=== PATIENT | male | born 1975 | race Caucasian/White ===

== ENCOUNTER 2017-05-22 10:52 | Emergency (ER) | payer BC, SELFPAY ==
[2017-05-22 11:15] LABS: #Basophils 0.1 thou/uL (0.0-0.2); #Eosinphils 0.1 thou/uL (0.0-0.7); #Lymphocytes 2.6 thou/uL (1.20-3.40); #Monocytes 0.5 thou/uL (0.11-0.59); #Neutrophils 3.9 thou/uL (1.40-6.50); %Basophils 1.5 % (0.0-1.0); %Eosinophils 1.9 % (0.0-10.0); %Lymphocytes 36.4 % (21.0-51.0); %Monocytes 6.8 % (0.0-10.0); Hematocrit 52.3 % (42.0-52.0); Mean Platelet Volume 6.9 fL (7.4-10.4); Red Blood Cell (RBC) Count 5.64 mill/uL (4.70-6.10); White Blood Cell (WBC) Count 7.2 thou/uL (4.8-10.8)
--- NOTE | 2017-05-22 11:18 | CT ---
CT BRAIN NONCONTRAST: HISTORY: 41-year-old male with acute stroke symptoms, right upper extremity weakness and dysarthria. Dr. Aguila gave this stroke alert CT report by telephone to ER physician, Dr. Swati Romero, at 11:0 8 a.m. on 05-22-17. FINDINGS: The ventricles are normal in size and configuration. There is no midline shift or any other mass ef fect. There is no evidence of acute intracranial hemorrhage, large cortical infarct, or extraaxial fluid collection. The peterson matter /white matter differentiation is maintained. The calvarium is in tact. The tympanomastoid cavities, and the upper portions of the paranasal sinuses included in thes e images, are grossly clear. IMPRESSION: Normal. jn POS: OFF
[2017-05-22 11:25] LABS: PTT 21.7 SEC (22.9-36.1)
[2017-05-22 11:30] LABS: ALT (SGPT) 24 U/L (8-55); AST (SGOT) 8 U/L (5-34); Alkaline Phosphatase 90 U/L (40-150); Anion Gap 17 mmol/L (10-20); BUN (Urea Nitrogen) 14 mg/dL (8.9-20.6); Bilirubin, Total 3.4 mg/dL (0.2-1.2); Calc. Creatinine Clearance 0 mL/min (70-130); Calcium 10.3 mg/dL (7.8-10.44); Carbon Dioxide 21 mmol/L (22-29); Chloride 105 mmol/L (98-107); Estimated GFR-MDRD 70; Globulin 3.5 g/dL (2.4-3.5); Protein, Total 8.3 g/dL (6.0-8.3)
[2017-05-22 11:51] LABS: Troponin I Less than 0.010 ng/mL (< 0.028)
--- NOTE | 2017-05-22 12:26 | CT ---
CT ANGIOGRAM OF THE NECK CT ANGIOGRAM OF THE HEAD CT PERFUSION: History: Right arm weakness with slurred speech. Symptoms have started to improve. Comparison: None. Technique: CT angiogram of the head and neck are performed in the axial plane. Sagittal and coronal 3D images are submitted for interpretation. CT Perfusion: Perfusion images performed in the axial plane. FINDINGS: Post contrast images do not demonstrate any pathological enhancement of the brain parenchyma. Cortic al peterson-white matter differentiation appears to be preserved. Calvarium is intact. Adequate aeration of sinuses and mastoid air cells. Small polyp or mucous reten tion cyst in the right maxillary sinus. Bilateral ocular lenses are appropriately located. Both globes are intact. Retrobulbar fat is preser shar. Aorta and digestive tract is patent. No mucosal abnormality. Parotid glands, submandibular glands and thyroid gland are unremarkable. Symmetric attenuation of the sternocleidomastoid muscles. No evidence of lymphadenopathy by size cri teria. Upper mediastinum and lung apices are unremarkable. There are varying degree of central canal stenosis and foraminal narrowing on the basis of degenerat gabriela change. Evaluation is limited due to technique. CT ANGIOGRAM: The aortic arch has appropriate enhancement and luminal diameter. RIGHT CAROTID: The right carotid artery origin has appropriate enhancement and luminal diameter. The common carotid artery, carotid bifurcation, and internal carotid artery have appropriate enhancement and luminal d iameter. LEFT CAROTID: Left carotid artery origin has appropriate enhancement and luminal diameter. The common carotid nick ry, carotid bifurcation and internal carotid artery have appropriate enhancement and luminal diamete r. Both subclavian arteries are normal in caliber. Left and right vertebral arteries are patent through out their course in the neck. The left vertebral artery origins directly from the aortic arch. CT ANGIOGRAM HEAD: The distal cervical and intracranial internal carotid arteries have symmetric enhancement and lumina l diameter. ANTERIOR CIRCULATION: Slightly diminutive right A1 segment, likely a congenital variant. There is symmetric enhancement of the lumen diameter of the A2 segments. There is symmetric enhancement and lumen diameter of the M1 segments. Proximal MCA branches are essentially symmetric. POSTERIOR CIRCULATION: The left and right PICA artery origins are slightly difficult to appreciate. Both vertebral arteries supply a normal caliber basilar artery. The left and right P1 segments and luminal diameter. CT PERFUSION: There is no evidence of increased mean transit time. There is no evidence of decreased blood flow or blood volume. There is no evidence of a completed infarct or brain ischemia on the perfusion images . IMPRESSION: 1. Unremarkable CT angiogram of the head and neck. No evidence of significant stenosis. 2. Unremarkable perfusion study. 3. Results of study discussed with Dr. Romero 05-22-17 at 11:50 a.m. Edu MESSER. POS: [facility]
[2017-05-22 12:36] LABS: Bilirubin Negative (Negative); Blood, Urine Trace (Negative); Glucose, Urine (Dipstick) Negative (Negative); Ketone, Urine Negative (Negative); Nitrite Negative (Negative); Protein, Urine (Dipstick) Negative (Neg-Trace); Urobilinogen 0.2 mg/dL (0.2-1.0)
[2017-05-22 12:54] LABS: Bacteria/HPF None Seen HPF (None Seen); Hyaline Casts/LPF 0-3 HYALINE CAST LPF (0-3 Hyaline); RBC/HPF 0-3 HPF (0-3); Squamous Epithelial 0-3 HPF (0-3); WBC/HPF 0-3 HPF (0-3)
[2017-05-22] MEDS ORDERED: ISOVUE-370 76%-LOCM 1 ML ONE (13:30)
== END 2017-05-22 13:39 | disposition home or self-care (01) ==
LOC: ERS 10:52
DX: R47.01 Aphasia (principal); R47.81 Slurred speech; R29.810 Facial weakness; R29.898 Other symptoms and signs involving the musculoskeletal system; M10.9 Gout, unspecified
CPT/HCPCS: 0042T; 36416; 70450; 70496; 70498; 80053; 81003; 81015; 82553; 84484; 85025; 85610; 85730; 93005